=== PATIENT | male | born 1980 | race Caucasian/White ===

== ENCOUNTER 2017-12-06 17:13 | Emergency (ER) | payer OTHER ==
[~2017-12-06] VITALS: Ht 180.3 cm; Wt 88.9 kg
[~2017-12-06 17:13] MED LIST: ALPRAZOLAM ER1 MG PO; DOXYCYCLINE HY100 M2 PO; PROTONIX40 M3 PO; TRAMADOL HCL50 M1 PO
[2017-12-06 18:09] LABS: HEMATOCRIT 38.8 % (42-52); MEAN CORPUSCULAR HGB 31.2 PG (27.0-31.0); MEAN CORPUSCULAR HGB CONC 34.3 G/DL (33.0-37.0); MEAN PLATELET VOLUME 9.7 FL (7.4-10.4); PLATELET COUNT 117 /CUMM (130-400); RBC DISTRIBUTION WIDTH 17.5 % (11.5-14.5); RED BLOOD CELL CT 4.26 /CUMM (4.70-6.10); WHITE BLOOD CELL COUNT 13.7 /CUMM (4.8-10.8)
--- NOTE | 2017-12-06 20:11 | ED GENERAL ADULT ---
History of Present Illness General Chief Complaint: ETOH/Drug Related Complaint Stated Complaint: ALCOHOL DETOX Source: patient Exam Limitations: no limitations Vital Signs & Intake/Output Vital Signs & Intake/Output Vital Signs Date Time Temp Pulse Resp B/P B/P Pulse O2 O2 Flow FiO2 Mean Ox Delivery Rate 12/07 0442 98.9 117 18 140/85 93 Room Air 12/07 0042 98.2 102 20 126/87 98 Room Air 12/06 2200 98.0 100 20 118/69 97 Room Air 12/06 2045 97 Room Air 12/06 1744 96.9 112 18 122/80 97 Room Air Room Air ED Intake and Output 12/07 0000 12/06 1200 Intake Total Output Total Balance Patient 196 lb Weight Weight Reported by Patient Measurement Method Allergies Coded Allergies: bee venom protein (honey bee) (Severe, ANAPHYLAXIS 12/06/17) pomegranate (Intermediate, HIVES 12/06/17) Reconcile Medications Albuterol Sulfate 0.63 MG/3 ML VIAL.NEB 1 Vial INH/ISAIAH 4 TIMES/DAY ASTHMA ( Reported) Alprazolam (Alprazolam ER) 1 MG TAB.ER.24H 1 TAB PO QAM ANXIETY (Reported) Buspirone HCl 15 MG TABLET ANXIETY (Reported) Doxycycline Hyclate 100 MG CAPSULE 1 CAP PO BID ANTIBIOTIC (Reported) Fluoxetine HCl (Prozac) 20 MG CAPSULE ANXIETY (Reported) Mirtazapine (Remeron) 15 MG TAB.RAPDIS NAUSEA (Reported) Pantoprazole Sodium (Protonix) 40 MG TABLET.DR 1 TAB PO DAILY GI (Reported) Propranolol LA (Inderal LA) 60 MG CAP.SA.24H 1 CAP PO DAILY HEALTH SUPPLEMENT (Reported) Tramadol HCl 50 MG TABLET 1 TAB PO PRN PAIN (Reported) Triage Note: PT TO ED WITH GOOD FAMILY FRIEND WITH C/O ETOH, ADMITS TO DRINK 4 DOUBLE IPA'S TODAY, AND THE SAME LAST FEW DAYS, "DABBLING WITH ALEXANDRU HEATH". PT C/O ANXIETY, AND THEN GETS VERY SLEEPY. Triage Nurses Notes Reviewed? yes Onset: Gradual Duration: week(s):, waxing and waning Timing: recent history Injury Environment: home Severity: moderate Modifying Factors: Worsens With: other (worse w/ alcoholism). HPI: 37 yo gentleman presents seeking alcohol detox. He notes, "I drink so much and know it's not good for my body." He also notes that his abdomen feels more swollen than usual. He drinks several beers a day and recently has been drinking achvr. He denies seizures, si, hi. Past History Travel History Traveled to [place] past 21 day No Medical History Any Pertinent Medical History? 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 No Review of Systems Review of Systems Constitutional: Reports: no symptoms. EENTM: Reports: no symptoms. Respiratory: Reports: no symptoms. Cardiovascular: Reports: no symptoms. GI: Reports: no symptoms. Genitourinary: Reports: no symptoms. Musculoskeletal: Reports: no symptoms. Skin: Reports: no symptoms. Neurological/Psychological: Reports: no symptoms. Hematologic/Endocrine: Reports: no symptoms. Immunologic/Allergic: Reports: no symptoms. All Other Systems: Reviewed and Negative Physical Exam Physical Exam General Appearance: well developed/nourished, mild distress Head: atraumatic, normal appearance Eyes: Bilateral: normal appearance, other (scleral icterus). Ears, Nose, Throat: normal pharynx, normal ENT inspection Neck: normal inspection, supple, full range of motion Respiratory: normal breath sounds, chest non-tender, no respiratory distress, quiet respiration, lungs clear Cardiovascular: regular rate/rhythm Gastrointestinal: normal bowel sounds, soft, moderate distension, no ruq tenderness, slight caput medusa Back: normal inspection Extremities: normal inspection, normal capillary refill, normal range of motion, no edema Neurologic/Psych: no motor/sensory deficits, awake, alert, oriented x 3 Skin: warm/dry, jaundice Core Measures ACS in differential dx? No CVA/TIA Diagnosis: No Sepsis Present: No Sepsis Focused Exam Completed? No Progress Differential Diagnoses I considered the following diagnoses in my evaluation of the patient: alcoholism , alcoholic liver disease vs other. Plan of Care: Orders Procedure Date/time Status Nothing by Mouth 12/07 B Active Saline Lock 12/06 2306 Active Misc Message 12/06 2306 Active ED Holding Orders 12/06 2306 Active Admit to inpatient 12/06 2306 Active Vital Signs 12/06 2306 Active Code Status 12/06 2306 Active Add-on Test (ER Only) 12/06 213 Active DIRECT BILIRUBIN 12/06 175 Complete AMMONIA LEVEL 12/06 175 Complete CIWA 12/06 173 Active URINE DRUGS OF ABUSE 12/06 173 Active MAGNESIUM 12/06 173 Complete ETHANOL 12/06 173 Complete COMPREHENSIVE METABOLIC PANEL 12/06 1730 Complete CBC WITHOUT DIFFERENTIAL 12/06 1730 Complete Laboratory Tests 12/06/17 1758: Ammonia 48 H 12/06/17 1758: Anion Gap 18 H, Estimated GFR > 60, BUN/Creatinine Ratio 5.0 L, Glucose 306 H , Calcium 7.8 L, Magnesium 1.8, Total Bilirubin 17.3 H, Direct Bilirubin 15.5 H, AST 395 H, ALT 59, Alkaline Phosphatase 501 H, Total Protein 8.2, Albumin 3.4 L, Globulin 4.8 H, Albumin/Globulin Ratio 0.7 L, CBC w Diff MAN DIFF ORDERED, RBC 4.26 L, MCV 91.0, MCH 31.2 H, MCHC 34.3, RDW 17.5 H, MPV 9.7, Segmented Neutrophils 78 H, Band Neutrophils 3, Lymphocytes 9 L, Monocytes 9, Basophils 1, Platelet Estimate VERIFIED BY SMEAR, Anisocytosis 1+, Target Cells 1+, Fld Total RBCs Counted 100, Serum Alcohol 455.0 Diagnostic Imaging: Viewed by Me: Ultrasound. Discussed w/RAD: Ultrasound. Radiology Impression: PATIENT: KASHIF STOVALL PRESENT AGE: 37 PATIENT ACCOUNT NO: [id number] : 80 LOCATION: [facility] ORDERING PHYSICIAN: Matthias Hidalgo MD SERVICE DATE: 12/06/17 EXAM TYPE: US - US-LIMITED ABDOMEN EXAMINATION: US ABDOMEN LIMITED CLINICAL INFORMATION: Right upper quadrant pain. COMPARISON: CT abdomen pelvis 12/09/2016 TECHNIQUE: Real-time imaging of the right upper quadrant abdominal viscera. FINDINGS: PANCREAS: The visualized portions of the pancreas are unremarkable but a large portion of the gland is obscured by bowel gas. LIVER: The liver demonstrates normal size, contour and echogenicity. No focal lesion or intrahepatic biliary duct dilatation. GALLBLADDER: The gallbladder wall is thickened with some fluid within it and measures 8 mm. The patient is not tender over the gallbladder. Bile was echogenic but no discrete stones are seen. No pericholecystic fluid collections are present. COMMON BILE DUCT: Normal in caliber measuring 0.4 cm in diameter. RIGHT KIDNEY: No hydronephrosis. No renal calculi or focal parenchymal lesions. The kidney measures 12.1 cm in maximum dimension. FREE FLUID: A small amount of ascites is noted in the right upper quadrant. IMPRESSION: Gallbladder with thickened wall and echogenic bile but no tenderness or pericholecystic fluid collections. There is a small amount of ascites present in the right upper quadrant. DICTATED BY: Jorge Webber MD DATE/TIME DICTATED:12/06/172203 [employer] SAL[employer] REPRESENTATIVE:PRINCESS DATE/TIME TRANSCRIBED:12/06/172203 CONFIDENTIAL, DO NOT COPY WITHOUT APPROPRIATE AUTHORIZATION. <Electronically signed in Other Vendor System> SIGNED BY: Jorge Webber MD 12/06/172210 Initial ED EKG: none Departure Departure Disposition: STILL A PATIENT Condition: Stable Clinical Impression Primary Impression: Alcoholism Referrals: Raysa Armendariz MD (PCP/Family) Departure Forms: Customer Survey General Discharge Information Comments 12/06/17, 22:58... discussed with dr. lopez (GI)... pt's presentation most consistent with hyperbilirubinemia from alcohol abuse... merits admission, they will consult in the AM. Discussed with patient. He adamantly refuses admission. However, given his intoxication, I will re-assess once sober. 12/06/17, 5:31am... pt is awake and alert, clinically sober, clear-headed, lucid in his decisions. I informed him of the risks of going home against medical advice. He expresses once again that he does not wish to be admitted. He does not want detox. He articulated reasons why he does not wish admission. He signed the AMA paperwork, witnessed by RN. Pt encouraged to return to ED when ready. Critical Care Note Critical Care Note Critical Care Time: non-applicable
[2017-12-06] MEDS ORDERED: INDERAL LA60 M1 PO (21:19)
[2017-12-06] MEDS ORDERED: PROZAC20 M2 (21:20)
[2017-12-06] MEDS ORDERED: BUSPIRONE HCL15 M1 (21:20)
[2017-12-06] MEDS ORDERED: REMERON15 M3 (21:21)
[2017-12-06] MEDS ORDERED: ALBUTEROL0.63 MG/1 INH/SOL (21:22)
--- NOTE | 2017-12-06 22:11 | ULTRASOUND REPORT ---
EXAMINATION: US ABDOMEN LIMITED CLINICAL INFORMATION: Right upper quadrant pain. COMPARISON: CT abdomen pelvis 12/09/2016 TECHNIQUE: Real-time imaging of the right upper quadrant abdominal viscera. FINDINGS: PANCREAS: The visualized portions of the pancreas are unremarkable but a large portion of the gland is obscured by bowel gas. LIVER: The liver demonstrates normal size, contour and echogenicity. No focal lesion or intrahepatic biliary duct dilatation. GALLBLADDER: The gallbladder wall is thickened with some fluid within it and measures 8 mm. The patient is not tender over the gallbladder. Bile was echogenic but no discrete stones are seen. No pericholecystic fluid collections are present. COMMON BILE DUCT: Normal in caliber measuring 0.4 cm in diameter. RIGHT KIDNEY: No hydronephrosis. No renal calculi or focal parenchymal lesions. The kidney measures 12.1 cm in maximum dimension. FREE FLUID: A small amount of ascites is noted in the right upper quadrant. IMPRESSION: Gallbladder with thickened wall and echogenic bile but no tenderness or pericholecystic fluid collections. There is a small amount of ascites present in the right upper quadrant.
[2017-12-07 05:58] VITALS: BP 132/88
== END 2017-12-07 05:58 | disposition left against medical advice (07) ==
LOC: ERH 17:13
PROVIDERS: Physician Assistant
DX: F10.20 Alcohol dependence, uncomplicated (principal); R14.0 Abdominal distension (gaseous); F41.9 Anxiety disorder, unspecified; F17.210 Nicotine dependence, cigarettes, uncomplicated; K21.9 Gastro-esophageal reflux disease without esophagitis
CPT/HCPCS: 80307; G0480